=== PATIENT | male | born 1995 | race Caucasian/White ===

== ENCOUNTER 2017-09-30 06:13 | Day surgery (SDC) | END 2017-09-30 10:45 | disposition home or self-care (01) ==

== ENCOUNTER 2018-11-23 22:50 | Emergency (ER) | payer OTHER ==
[~2018-11-23] VITALS: Ht 165.1 cm; Wt 98.0 kg
[~2018-11-23 22:50] MED LIST: BENZ200C68 PO; D-ME473S2 PO; IBUP-1561 PO; MINO50CA3 PO
[2018-11-23 22:54] VITALS: BP 143/89; PULSE 75; RESP 16; Ht 165.1 cm; Wt 98.0 kg
== END 2018-11-24 01:01 | disposition home or self-care (01) ==
LOC: FTE 22:50
DX: R05 Cough (principal)
CPT/HCPCS: 71046; Z7502